=== PATIENT | male | born 1955 | race Caucasian/White ===

== ENCOUNTER 2021-03-05 12:32 | Outpatient (CLI) | payer SELFPAY ==
--- NOTE | 2021-03-05 12:30 | RT.EKG_ITS ---
APPROVED REPORT Exam: Resting ECG Reason for Exam: Chest discomfort Patient Location: O HR:80 bpm ECG Measurements Heart Rate 80 AXIS IL 135 P 49 QRSd 85 QRS 27 QT 373 T 16 QTc 429 Conclusion Sinus rhythm...normal P axis, V-rate 60- 99 Normal Electrocardiogram
== END 2021-03-05 12:33 | disposition home or self-care (01) ==
LOC: DI.CM 12:33
PROVIDERS: Visit Provider Nurse Practitioner Family
DX: R07.89 Other chest pain (principal)
CPT/HCPCS: 93010

== ENCOUNTER 2021-03-05 13:53 | Emergency (ER) | payer SELFPAY ==
[2021-03-05] VITALS (24 sets, daily range): BP systolic 158; BP diastolic 79; PULSE 77–93; RESP 13–22; TEMP 36.5; O2SAT 97–100
--- NOTE | 2021-03-05 13:58 | W.ED.GENAD ---
Discharge Plan Disposition Patient Disposition: HOME Condition: Stable Discharge Details Clinical Impression: COVID-19, Chest pain, Fatigue Primary Care Provider: None,None ED Provider: Светлана Lester Home Meds and New Rx's Prescriptions: New doxycycline hyclate 100 mg tablet 100 mg PO BID 7 Days Qty: 14 RF: 0 Discharge Instructions Instructions: Chest Pain (ED), Viral Syndrome (ED), Fatigue (ED) Additional Instructions: Your CT scan today noted COVID-19 pneumonia. A virus is best treated with rest, fluids, and [id number] supportive care such as cough and cold medication. Drink plenty of fluids and get plenty of rest. Alternate tylenol and motrin as needed and directed for pain. Use the albuterol inhaler as needed and directed for shortness of breath, cough or wheezing. A prescription for antibiotics was sent electronically to your pharmacy. You do not need to start these unless you develop fever, worsening shortness of breath, or cough with yellow or green mucus. You will receive a call from care management regarding a follow-up appointment with your primary care doctor for reevaluation within the next 1 to 2 weeks. Return immediately to the emergency department if you develop any worsening or new concerning symptoms. Discharge Data Discharge Date/Time-TO BE ENTERED AT DEPARTURE: 03/05/21 19:30 Discharge Physician: Светлана Lester Medical Decision Making 55-year-old male w/ left-sided chest pain, fatigue, poor appetite and shortness of breath for 2 weeks with positive COVID 19 diagnosis 10 days ago. Vitals within normal limits. Patient appears comfortable and nontoxic. Lungs clear. EKG on arrival notes a rate of 85, sinus, no STEMI and nondiagnostic. Differential diagnosis includes expected course for Covid, pneumonia, chest wall pain or less likely PE. Will obtain screening labs, CT chest and give bolus IV fluids. Labs and imaging reviewed. Normal white blood cell count. Normal electrolytes. Troponin negative. Covid swab obtained here and still positive. CT reviewed and notes IMPRESSION: No evidence of pulmonary embolism. Bilateral scattered patchy infiltrates greater in the lower lobes, compatible with COVID- 19 pneumonia. Pt reassessed and he feels better. His O2 saturation has remained near 100% and he is no respiratory distress and appears comfortable. As pt's symptom presentation started over 10 days ago, he does not qualify for monoclonal antibodies. Pt feels comfortable going home. Will send home with an albuterol to use as needed as well as a prescription for antibiotics if he develops persistent fevers, purulent sputum. He is advised to push fluids, rest, supportive care. Advised to f/u with his pcp for re-evaluation and to return here immediately with any worsening symptoms. Medical Records Medical records reviewed: Yes I reviewed the patient's medical records. Imaging Data Radiologic Study: Radiologist's impression: CT CHEST PE CTA CLINICAL HISTORY: left sided hest pain, r/o PE/pneumonia. TECHNIQUE: Imaging Protocol: Axial CT angiography was performed with multi-slice acquisition and multi-planar and/or 3D reconstructions. CONTRAST MATERIAL: Intravenous: Omnipaque 350 Contrast volume:100 ml COMPARISON: No exams were available for comparison FINDINGS: Pulmonary Arteries: No evidence of filling defect to suggest pulmonary emboli. Tracheobronchial tree: Patent where visualized. Mediastinum and Fiona: Mildly enlarged, reactive lymph nodes. No fluid collection. Pulmonary parenchyma: Limited evaluation due to expiratory changes and mild respiratory motion. Scattered patchy peripheral areas infiltration greater at the lung bases is compatible with COVID-19 pneumonia. Pleura: No effusion or pneumothorax. Heart: The heart upper limits normal in size. No coronary artery calcifications are seen. Aorta: Thoracic aorta non-dilated. No dissection. Upper abdomen: Small hiatal hernia, otherwise unremarkable. Bones: Mild T12 compression fracture, appears chronic. Degenerative changes. IMPRESSION: No evidence of pulmonary embolism. Bilateral scattered patchy infiltrates greater in the lower lobes, compatible with COVID- 19 pneumonia. Lab Data Lab results reviewed: Yes I reviewed the patient's lab results. Labs: Laboratory Tests Range/Units 03/05/21 03/05/21 03/05/21 15:05 15:10 15:10 WBC (4.4-10.8) 10^3/uL 5.67 RBC (4.36-5.78) 10^6/uL 5.18 Hgb (13.5-17.5) g/dL 15.0 Hct (40.0-50.0) % 44.7 MCV (80-95) fL 86.3 MCH (27.0-33.0) pg 29.0 MCHC (32.0-36.0) % 33.6 RDW (11.8-14.1) % 12.0 Plt Count (130-400) 10^3/uL 186 MPV (8.0-11.0) fL 8.5 Immature Gran % 1.1 Neutrophils % 62.7 Lymphocytes % 18.3 Monocytes % 17.3 Eosinophils % 0.2 Basophils % 0.4 Nucleated RBC % % 0 Absolute Neutrophils (1.2-6.7) 10^3/uL 3.56 Absolute Lymphocytes (1.2-3.4) 10^3/uL 1.04 L Absolute Monocytes (0.1-0.8) 10^3/uL 0.98 H Absolute Eosinophils (0.0-0.7) 10^3/uL 0.01 Absolute Basophils (0.0-0.2) 10^3/uL 0.02 Sodium (136-145) mmol/L 138 Potassium (3.5-5.1) mmol/L 3.7 Chloride (98-107) mmol/L 102 Carbon Dioxide (21.0-32.0) mmol/L 27.8 Anion Gap (3-11) mmol/L 8.2 BUN (7-18) mg/dL 9 Creatinine (0.70-1.30) mg/dL 0.8 Estimated GFR/1.73 m2 (mL/min/1.73m2) >= 60.00 Glucose (74-106) mg/dL 102 Calcium (8.5-10.1) mg/dL 8.7 Magnesium (1.8-2.4) mg/dL 2.2 Total Bilirubin (0.2-1.0) mg/dL 0.6 AST (15-37) U/L 29 ALT (16-63) U/L 37 Alkaline Phosphatase (46-116) U/L 73 Troponin I (<0.06) ng/mL < 0.05 Total Protein (6.4-8.2) g/dL 7.8 Albumin (3.4-5.0) g/dL 3.8 COVID-19 Source Nasal/Nares SARS-CoV-2 (PCR) (Negative) POSITIVE A* ECG Data Attestation: I personally reviewed and interpreted this ECG (s) as follows: Interpretation: rate of 85, sinus, no acute ST elevation or depression. TN 138. QRS 85. QTc 437. HPI General Mode of arrival: ambulatory. Date/Time Provider Initiated Documentation: 03/05/21 13:57. Limitations to Documentation: no limitations. Information obtained by: patient. HPI Narrative: Patient is a 65-year-old unvaccinated for Covid male presents with 2 weeks of fatigue, poor appetite, shortness of breath and nausea. He had an outpatient test for Covid 10 days ago which was positive. He states he does not want to be vaccinated just because . He states he has had intermittent left-sided chest pain for the past 2 weeks. His daughter is a commercial fishing vessel operator and she advised him to come here for further evaluation. Patient was seen at the urgent care and sent here for further evaluation of his chest pain. His oxygen saturation was noted to be 96% and he was in no acute distress. He denies any significant shortness of breath. He denies any diarrhea, known fever, headache or neck pain. Related Data Home Medications Medication Instructions Recorded Confirmed doxycycline hyclate 100 mg PO BID 7 Days #14 tab 03/05/21 Previous Rx's Medication Instructions Recorded doxycycline hyclate 100 mg PO BID 7 Days #14 tab 03/05/21 Allergies Allergy/AdvReac Type Severity Reaction Status Date / Time Penicillins Allergy Unknown Verified 03/05/21 14:05 Review of Systems All systems reviewed & are unremarkable except as noted in HPI and below Constitutional Constitutional: Reports as per HPI, Denies chills, Reports fatigue, Denies fever(s) and Reports weakness Eyes Eyes: Denies blurry vision ENT Ears, Nose, Mouth, and Throat: Denies dizziness, Denies sore throat and Denies throat swelling Cardiovascular Cardiovascular: Denies chest pain and Reports dyspnea Respiratory Respiratory: Denies cough and Reports dyspnea Gastrointestinal Gastrointestinal: Denies abdominal pain, Denies diarrhea, Reports nausea and Denies vomiting Genitourinary Genitourinary: Denies hematuria and Denies dysuria Musculoskeletal Musculoskeletal: Denies back pain and Denies numbness Integumentary/Breasts Skin/Breast: Denies lesions and Denies rash Neurologic Neurologic: Denies dizziness, Denies localized weakness, Denies numbness and Reports weakness Endocrine Endocrine: Reports fatigue Allergic/Immunologic Allergic/Immunologic: Denies throat swelling [facility] Surgical History Repair of inguinal hernia 04/30/14 (LEFT) Social History Smoking/Tobacco Use Status: Never Smoking risk assessment performed?: Yes Alcohol Intake: never Drug use: Never Substance use type: does not use Exam Const General: cooperative and no acute distress HENMT Head: normal to inspection Face and sinus: normal facial exam Eyes General: appearance normal, both eyes and all related structures EOM: EOM intact bilaterally Neck Neck: normal visual inspection and No submandibular swelling Lymphatic: no lymphadenopathy noted Chest Chest: normal inspection of the chest and no tenderness Resp Effort & Inspection: normal respiratory effort and able to speak in complete sentences Auscultation: clear to auscultation bilaterally Cardio Rate: regular rate Rhythm: regular rhythm GI Inspection: normal to inspection Palpation: soft, not firm, not rigid and nontender Auscultation: normal bowel sounds Skin General skin exam: no rashes or lesions noted Neuro General: patient alert, patient awake and patient oriented x3 Cognition: normal cognition Speech: speech normal Motor: muscle tone normal throughout Sensory Exam: no sensory deficits noted Extrem General: normal to inspection, full ROM, capillary refill normal, no calf tenderness bilaterally and no edema Psych Appearance: grossly normal Mental Status: mental status grossly normal Speech and Movement: speech and movement normal Affect: normal affect
--- NOTE | 2021-03-05 14:00 | RT.EKG_ITS ---
APPROVED REPORT Exam: Resting ECG Reason for Exam: chest pain Patient Location: E HR:85 bpm ECG Measurements Heart Rate 85 AXIS CA 138 P 43 QRSd 85 QRS 12 QT 367 T 4 QTc 437 Conclusion Sinus rhythm...normal P axis, V-rate 60- 99. Sinus. No STEMI. I have reviewed and interpreted ECG and agree with software generated interpretation.
[2021-03-05 15:08] LABS: Source Nasal/Nares
[2021-03-05 15:23] LABS: Abs Immature Grans 0.06 10^3/uL (0.0-0.06); Absolute Basophil Count 0.02 10^3/uL (0.0-0.2); Absolute Eosinophil Count 0.01 10^3/uL (0.0-0.7); Absolute Lymphocyte Count 1.04 10^3/uL (1.2-3.4); Absolute Monocyte Count 0.98 10^3/uL (0.1-0.8); Absolute Neutrophil Count 3.56 10^3/uL (1.2-6.7); Basophils % 0.4; Eosinophils % 0.2; HCT 44.7 % (40.0-50.0); Immature Grans % 1.1; Lymphocytes % 18.3; MCHC 33.6 % (32.0-36.0); MCV 86.3 fL (80-95); MPV 8.5 fL (8.0-11.0); Monocytes % 17.3; Neutrophils % 62.7; Nucleated RBC 0 %; Platelet Count 186 10^3/uL (130-400); RBC 5.18 10^6/uL (4.36-5.78); RDW-SD 38.5 fL; WBC 5.67 10^3/uL (4.4-10.8)
[2021-03-05 15:39] LABS: ALT 37 U/L (16-63); AST 29 U/L (15-37); Albumin 3.8 g/dL (3.4-5.0); Alkaline Phosphatase 73 U/L (46-116); Anion Gap 8.2 mmol/L (3-11); BUN 9 mg/dL (7-18); Bilirubin, Total 0.6 mg/dL (0.2-1.0); CO2 27.8 mmol/L (21.0-32.0); CREATININE 0.8 mg/dL (0.70-1.30); Calcium 8.7 mg/dL (8.5-10.1); Chloride 102 mmol/L (98-107); Glucose 102 mg/dL (74-106); Magnesium 2.2 mg/dL (1.8-2.4); Potassium 3.7 mmol/L (3.5-5.1); Sodium 138 mmol/L (136-145); Total Protein 7.8 g/dL (6.4-8.2)
[2021-03-05 15:41] LABS: Troponin I < 0.05 ng/mL (<0.06)
--- NOTE | 2021-03-05 15:45 | DI.CT_ITS ---
Exam(s) CT CHEST PE CTA EXAM: CT CHEST PE CTA CLINICAL HISTORY: left sided chest pain, r/o PE/pneumonia. TECHNIQUE: Imaging Protocol: Axial CT angiography was performed with multi-slice acquisition and mu lti-planar and/or 3D reconstructions. CONTRAST MATERIAL: Intravenous: Omnipaque 350 Contrast volume:100 ml COMPARISON: No exams were available for comparison FINDINGS: Pulmonary Arteries: No evidence of filling defect to suggest pulmonary emboli. Tracheobronchial tree: Patent where visualized. Mediastinum and Fiona: Mildly enlarged, reactive lymph nodes. No fluid collection. Pulmonary parenchyma: Limited evaluation due to expiratory changes and mild respiratory motion. Scat tered patchy peripheral areas infiltration greater at the lung bases is compatible with COVID-19 pneu monia. Pleura: No effusion or pneumothorax. Heart: The heart upper limits normal in size. No coronary artery calcifications are seen. Aorta: Thoracic aorta non-dilated. No dissection. Upper abdomen: Small hiatal hernia, otherwise unremarkable. Bones: Mild T12 compression fracture, appears chronic. Degenerative changes. IMPRESSION: No evidence of pulmonary embolism. Bilateral scattered patchy infiltrates greater in the lower lobes , compatible with COVID- 19 pneumonia. RADIATION DOSE DELIVERED: 600.92mGy.cm Total DLP DATA REPOSITORY: All CT scans at this facility are submitted to the National Radiology Data Registry (NRDR) Dose Index Registry (DIR) with the [employer] ([employer]). RADIATION OPTIMIZATION: All CT scans at this facility use at least one of these dose optimization te chniques: automated exposure control; mA and/or kV adjustment per patient size (includes targeted exa ms where dose is matched to clinical indication); or iterative reconstruction.
[2021-03-05 16:08] LABS: COVID-19 PCR POSITIVE (Negative)
[2021-03-05] MEDS: Normal Saline - Diluent 50 ML VIAL IV (17:45)
[2021-03-05] MEDS: Omnipaque 350 MG/ML 100 ML BTL IJ (17:46)
[2021-03-05] MEDS: Normal Saline Flush 10 ML SYR IVP (17:46)
--- NOTE | 2021-03-05 18:15 | DI.VRAD_ITS ---
PROCEDURE INFORMATION: Exam: CTA Chest With Contrast Exam date and time: 03/05/2021 4:00 PM Age: 65 years old Clinical indication: Other: Left sided chest pain, R/O pe/pneumonia +vcovid TECHNIQUE: Imaging protocol: Computed tomographic angiography of the chest with contrast. 3D rendering (Not supervised by radiologist): MIP and/or 3D reconstructed images were created by the technologist. Contrast material: OMNIPAQUE 350; Contrast volume: 100 ml; Contrast route: INTRAVENOUS (IV); COMPARISON: No relevant prior studies available. FINDINGS: Pulmonary arteries: The pulmonary arteries opacify normally with contrast without evidence for pulmonary embolism. Aorta: The thoracic aorta opacifies normally with contrast without aneurysm or dissection. Lungs: The somewhat linear and nodular pulmonary opacification is seen within the periphery of the left upper lobe. A similar appearance is seen within the lingula and bilateral lower lobes. Passive atelectasis or infiltrate is also seen within the right middle lobe. Pleural spaces: Unremarkable. No pneumothorax. No pleural effusion. Heart: The heart is upper limits of normal in size. No pericardial effusion. Mediastinal space: The esophagus is normal appearance. Small hiatal hernia. Lymph nodes: Prominent lymph nodes are seen within the mediastinum and bilateral ryley, measuring up to 8 mm in short axis. Liver: The liver is normal in size and is mildly fatty infiltrated. Pancreas: The pancreas is normal appearance. No pancreatic ductal dilatation. Spleen: The spleen is normal in appearance. Adrenal glands: The bilateral adrenal glands are normal appearance. Kidneys and ureters: The bilateral superior renal poles are normal appearance. Stomach and bowel: The stomach, imaged small bowel and imaged transverse colon are normal appearance. Bones/joints: Mild degenerative changes throughout the thoracic spine superimposed on diffuse idiopathic skeletal hypertrophy. Soft tissues: Unremarkable. Other findings: The great vessels opacify normally with contrast. IMPRESSION: 1. No evidence for a pulmonary embolism. No thoracic aortic aneurysm. No evidence for right heart strain. No evidence for right heart strain. RV/LV ratio 0.8. 2. Patchy peripheral pulmonary opacities throughout the left upper lobe, lingula and bilateral lower lobes with passive atelectasis or infiltrate within the right middle lobe. This suggests an infectious or inflammatory process and may correspond to the known Covid-19 pneumonia. However, a follow-up chest CT study in 3 months should be performed to ensure resolution. 3. Prominent mediastinal and bilateral hilar lymph nodes, likely reactive. However, these can be evaluated with a follow-up CT of the chest in 3 months. Dictated and Authenticated by: Jacqui Lynne MD. Ordering:JESSICA Sotomayor MD
[2021-03-05] MEDS: Normal Saline 1,000 ML 1000 ML IV (18:25)
[2021-03-05] MEDS: Albuterol HFA 8 GM 60 PUFF INH IH (19:27)
== END 2021-03-05 19:30 | disposition home or self-care (01) ==
PROVIDERS: Emergency Provider Physician Assistant
DX: U07.1 COVID-19 (principal); R07.9 Chest pain, unspecified; R53.83 Other fatigue
CPT/HCPCS: 71275; 80053; 87635; 93005; 96360; 99285; 83735; 84484; 85025; 93010; 99284; J3490